=== PATIENT | male | born 1990 | race African-American/Black ===

== ENCOUNTER 2021-07-18 13:09 | Emergency (ER) | payer SELFPAY ==
[2021-07-18 13:24] VITALS: BP 135/89; PULSE 69; RESP 16; TEMP 36.1; O2SAT 100
--- NOTE | 2021-07-18 13:38 | ED.EYEPROB ---
HPI - Eye Problem General Chief complaint: Eye Problems Stated complaint: Left Eye Pain Time Seen by Provider: 07/18/21 13:38 Source: patient Mode of arrival: ambulatory Limitations: no limitations History of Present Illness HPI Narrative: Michael Forde is a 30 yo male with no PMH [facility] eye swelling and watering. His eyelids are mildly swollen, he has been around children recently but is not sure of the pneumonolysis had this eye issue. He does not wear contacts,he does not have eye pain. Vision is intact Related Data Allergies Allergy/AdvReac Type Severity Reaction Status Date / Time No Known Allergies Allergy Verified 07/18/21 13:39 Review of Systems Review of Systems: CONSTITUTIONAL: Denies fever, chills, sweats. EYES: Denies visual changes, both are redness, both have discharge. ENT: Denies rhinorrhea, congestion, sore throat, otalgia. CARDIOVASCULAR: Denies chest pain, palpitations, edema. RESPIRATORY: Denies dyspnea, wheezing, cough GASTROINTESTINAL: Denies abdominal pain, nausea, vomiting, diarrhea. GENITOURINARY: Denies dysuria, hematuria, abnormal discharge SKIN: Denies rash or itching. NEUROLOGIC: Denies numbness, or focal weakness. PSYCHIATRIC: Denies anxiety or depression. [facility] Past Medical History Medical History No acute medical problems Social History Social History (Updated 07/18/21 @ 13:41 by Kayleen Garcia CNP) Smoking status: Never smoker Alcohol intake: current Comments At time of signature, I agree with nursing past medical, surgical, social and family history. There is no relevant family history pertinent to the presenting complaint. Exam Narrative: GENERAL: This is a well-nourished, well-developed patient, in mild distress. HEAD: normocephalic, atraumatic. EYES: PERRL. Sclera reddened and watery. Vision is grossly intact. EARS: External ears normal, a. Hearing grossly intact. NOSE: External nose normal without nasal discharge, nares without redness, no rhinorrhea. THROAT: Mucous membranes moist, NECK: Neck supple, non-tender CARDIOVASCULAR: Regular rate and rhythm without murmurs, gallops, or rubs. RESPIRATORY: Clear to auscultation. Breath sounds equal bilaterally. No wheezes, rales, or rhonchi. GASTROINTESTINAL: Not done SKIN: warm, intact with no suspicious lesions or rash, good texture and turgor. NEURO: awake, alert, and oriented to person, place and time. There were no obvious focal neurologic abnormalities. Steady gait EXTREMITIES: Normal range of motion. BACK: Nontender without deformity Course Course Emergency Course: Bilateral eye injection with eyelid swelling and wateriness Started on tobramycin, good handwashing and discussed spread of eye infection Level of Care: Express Care Visit Vital Signs Vital signs: Vital Signs Temperature 96.9 F L 07/18/21 13:24 Pulse Rate 69 07/18/21 13:24 Respiratory Rate 16 07/18/21 13:24 Blood Pressure 135/89 07/18/21 13:24 Pulse Oximetry 100 07/18/21 13:24 Temperature 96.9 F L 07/18/21 13:24 Pulse Rate 69 07/18/21 13:24 Respiratory Rate 16 07/18/21 13:24 Blood Pressure 135/89 07/18/21 13:24 Pulse Oximetry 100 07/18/21 13:24 MDM - Eye Problem Differential Diagnosis Differential diagnosis: Likely corneal abrasion, conjunctivitis, subconjunctival hemorrhage, corneal ulcer and other Critical Care Time Critical Care Time Critical Care Time: No Discharge Plan Discharge Clinical Impression: Bacterial conjunctivitis Patient Disposition: Home, Self-Care Condition: Stable Instructions: Antibiotic Form, Conjunctivitis (ED) Additional Instructions: Patient is to use antibiotics by directions on the prescription Use warm washcloth to each eye 3-4 times a day do not cross contaminate between eyes do not scratch or put fingers in eyes Use sunglasses if sun is out Prescriptions: New
== END 2021-07-18 13:54 | disposition home or self-care (01) ==
PROVIDERS: Emergency Provider Nurse Practitioner
DX: H10.9 Unspecified conjunctivitis (principal)
CPT/HCPCS: 99213; G0463

== ENCOUNTER 2023-03-31 14:19 | Emergency (ER) | payer OTHER, SELFPAY ==
--- NOTE | ~2023-03-31 | XR_ITS ---
XR chest 2V DATE: 03/31/2023 15:10 INDICATION: Productive cough for one month. Nonsmoker. TECHNIQUE: 2 views COMPARISON: None FINDINGS: There is mild suprahilar infiltrate in the right consistent with mild right upper lobe infi ltrate. The lungs otherwise appear clear. Normal heart size. No hilar or mediastinal enlargement. No pleural effusion or pulmonary vascular con gestion or pneumothorax. IMPRESSION: Mild suprahilar right upper lobe pulmonary infiltrate Reviewed, dictated and finalized at location B. [employer]
[2023-03-31 14:33] VITALS: BP 132/74; PULSE 104; RESP 16; TEMP 36.8; O2SAT 99
--- NOTE | 2023-03-31 14:58 | ED.URI ---
HPI - URI/Sore Throat General Chief Complaint: Upper Respiratory Infection Stated Complaint: cough, no appetite lost weight Time Seen by Provider: 03/31/23 14:58 Source: patient Mode of arrival: ambulatory Limitations: no limitations History of Present Illness HPI Narrative: 32-year-old male presents with complaint of cough since . Reports over the past week feeling fatigued, short of breath with exertion, chest tightness when trying to take full breath. Afebrile. No history of smoking. has not been seen for his cough. Has been taking [id number] Mucinex to treat symptoms. All systems reviewed and negative except as noted above. Related Data Allergies Allergy/AdvReac Type Severity Reaction Status Date / Time No Known Allergies Allergy Verified 03/31/23 14:37 Review of Systems Review of Systems: CONSTITUTIONAL: Denies fever, chills, or sweats. EYES: Denies visual changes, redness, or discharge. ENT: Denies rhinorrhea, congestion, sore throat, or otalgia. CARDIOVASCULAR: Denies chest pain, palpitations, or edema. RESPIRATORY: Reports cough and dyspnea with exertion. GASTROINTESTINAL: Denies abdominal pain, nausea, vomiting, or diarrhea. GENITOURINARY: Denies dysuria or hematuria. SKIN: Denies rash or itching. MUSCULOSKELETAL: Denies back pain, joint pain, or myalgia. NEUROLOGIC: Denies headache, numbness, or weakness. PSYCHIATRIC: Denies anxiety or depression. All other systems reviewed are negative, except as documented in HPI. PMFSH Past Medical History Medical History No acute medical problems Social History Social History (Updated 07/18/21 @ 13:41 by Kayleen Garcia, [employer]ATOR) Smoking status: Never smoker Alcohol intake: current Comments At time of signature, agree with nursing past medical, surgical, social and family history. There is no relevant family history pertinent to the presenting complaint. Exam Narrative: GENERAL: This is a well-nourished, well-developed patient, in no apparent distress. HEAD: normocephalic, atraumatic. EYES: PERRL. Sclera clear/white. Vision is grossly intact. EARS: External ears normal, auditory canals clear and without drainage, TMs normal without perforation. Hearing grossly intact. NOSE: External nose normal with no obvious nasal discharge, nares without redness, no rhinorrhea. THROAT: Mucous membranes moist, posterior pharynx clear. NECK: Neck supple, non-tender without lymphadenopathy, masses or thyromegaly. CARDIOVASCULAR: Regular rate and rhythm without murmurs, gallops, or rubs. RESPIRATORY: rhonchi on Expiration throughout all lung reyes.Breath sounds equal bilaterally. No wheezes, rales SKIN: warm, Dry, intact with no suspicious lesions or rash, good texture and turgor. NEURO: awake, alert, and oriented to person, place and time. There were no obvious focal neurologic abnormalities. EXTREMITIES: No joint tenderness, effusion, or edema noted. Course Course Level of Care: Express Care Visit Vital Signs Vital signs: Vital Signs Temperature 36.8 C 03/31/23 14:33 Pulse Rate 104 H 03/31/23 14:33 Respiratory Rate 16 03/31/23 14:33 Blood Pressure 132/74 03/31/23 14:33 Pulse Oximetry 99 03/31/23 14:33 Oxygen Delivery Room Air 03/31/23 14:33 Temperature 36.8 C 03/31/23 14:33 Pulse Rate 104 H 03/31/23 14:33 Respiratory Rate 16 03/31/23 14:33 Blood Pressure 132/74 03/31/23 14:33 Pulse Oximetry 99 03/31/23 14:33 Oxygen Delivery Room Air 03/31/23 14:33 reviewed MDM - URI/Sore Throat MDM Narrative Medical decision making narrative: Patient is aware of diagnosis, understands and agrees to treatment plan. Anticipatory guidance given. Patient agrees to follow-up as directed and is aware of reasons to seek care at the emergency department. Portions of this record may have been created with voice recognition software discussed x-ra
== END 2023-03-31 15:31 | disposition home or self-care (01) ==
PROVIDERS: Emergency Provider Nurse Practitioner Family
DX: J18.9 Pneumonia, unspecified organism (principal); Z86.16 Personal history of COVID-19
CPT/HCPCS: 71046; 99213; G0463

== ENCOUNTER 2023-04-11 17:34 | Emergency (ER) | payer OTHER, SELFPAY ==
--- NOTE | ~2023-04-11 | XR_ITS ---
EXAMINATION: XR chest 2V Exam Date/Time: 04/11/2023 17:50 [employer] HISTORY: persistant cough non smoker Comparison: 03/31/2023. RESULT: Lines, tubes, and devices: None. Lungs and pleura: Severe diffuse ground glass opacities with some degree of apical and basilar spari ng. Cardiomediastinal silhouette: Stable. Other: No acute osseous or upper abdominal finding. IMPRESSION: Diffuse groundglass opacities may represent moderate pulmonary edema versus pneumonia. Reviewed, dictated and finalized at location [facility] IMPRESSION: Diffuse groundglass opacities may represent moderate pulmonary edema versus pne umonia.
[2023-04-11 17:43] VITALS: BP 147/81; PULSE 136; RESP 18; TEMP 38.3; O2SAT 98
--- NOTE | 2023-04-11 17:45 | ED.GENADULT ---
HPI - General Adult General Chief complaint: Upper Respiratory Infection Stated complaint: cough following last visit Time Seen by Provider: 04/11/23 17:47 Source: patient, RN notes reviewed and old records reviewed Mode of arrival: ambulatory Limitations: no limitations History of Present Illness HPI narrative: 32-year-old male presents to the [facility] with cough. Patient presents with fever, tachycardia. Patient denies any chest pain. Reports mildly short of breath. Patient also concerned that he has lost 40 lb since . Was seen on 31 March, diagnosed with pneumonia which prescribed antibiotics, inhaler, prednisone. Patient states that he did feel better, started feeling worse again 4 days ago. Works in a nursing home. Onset (ago): month(s) (1) Treatments prior to arrival: other (Prednisone, albuterol, antibiotics) Related Data Home Medications Medication Instructions Recorded Confirmed No Home Medications 04/11/23 04/11/23 Allergies Allergy/AdvReac Type Severity Reaction Status Date / Time No Known Allergies Allergy Verified 04/11/23 17:45 Review of Systems Review of Systems: All systems reviewed & are unremarkable except as noted in HPI and below Constitutional: Constitutional: Reports as per HPI, Reports fatigue and Reports weight loss (40 lb in a month) Eyes: Eyes: Reports no additional eye complaints ENT: Reports system reviewed and no additional complaints, except as documented Cardiovascular: Cardiovascular: Reports no additional cardiovascular complaints, Denies chest pain and Denies dyspnea Respiratory: Respiratory: Reports as per HPI, Reports chest congestion, Reports cough and Reports dyspnea Gastrointestinal: Gastrointestinal: Reports no additional gastrointestinal complaints, Denies abdominal pain, Denies nausea and Denies vomiting Musculoskeletal: Musculoskeletal: Reports no additional musculoskeletal complaints Integumentary/Breasts: Skin/Breast: Reports system reviewed and no additional complaints, except as docu Neurologic: Reports system reviewed and no additional complaints, except as documented Psychiatric: Psychiatric: Reports no additional psychiatric complaints Allergic/Immunologic: Allergic/Immunologic: Reports no additional allergic/immunologic complaints PMF Past Medical History Medical History No acute medical problems Social History Social History Smoking status: Never smoker Alcohol intake: current Comments At the time of my signature, I reviewed and agree with the nursing past medical, surgical, social, and family history. There is no relevant family history pertinent to the patient complaint. Exam Const: General: cooperative, no acute distress, well developed, alert, ill appearing acutely (Mild), uncomfortable and well nourished Nutritional Appearance: well nourished Orientation/consciousness: patient oriented x3 Limitations: no limitations HENMT: Head: normal to inspection Ears: hearing grossly normal bilaterally, external ears normal, TM's normal bilaterally, EAC's normal, mastoids normal and no periauricular adenopathy Face/Nose/Sinus: Normal external nose present, Normal nares present, Normal nasal mucous membranes and turbinates present, normal facial exam and face symmetric Face and sinus: normal facial exam and face symmetric Mouth: Yes Normal oral and palatal mucosa present, Yes lip normal and Yes moist mucous membranes Throat: posterior oropharynx normal and uvula midline Eyes: General: appearance normal, both eyes and all related structures Alignment and Position: alignment normal Periorbital: periorbital findings normal Pupils: Equal, round and reactive pupils present EOM: EOMs intact bilaterally Neck: Neck: normal visual inspection, full ROM, no lymphadenopathy and no meningeal signs Chest: Chest palpation & inspection: normal
[2023-04-11 17:56] VITALS: TEMP 38.3
[2023-04-11] MEDS: ACETAMINOPHEN 500 MG TABLET 1000 MG PO (17:56)
[2023-04-11 18:29] VITALS: TEMP 38.2
[2023-04-11 18:30] VITALS: PULSE 119; RESP 20; O2SAT 96
--- NOTE | 2023-04-11 18:31 | ECG_ITS ---
Measurements Intervals [place] Rate: 119 P: 66 WI: 139 QRS: 47 QRSD: 114 T: 58 QT: 331 QTc: 467 Interpretive Statements SINUS TACHYCARDIA POSSIBLE LEFT ATRIAL ENLARGEMENT INCOMPLETE RIGHT BUNDLE BRANCH BLOCK BASELINE ARTIFACT- I, II, AVR, AVL, V1-V2, V4-V6 ABNORMAL ECG NO PREVIOUS ECG AVAILABLE FOR COMPARISON Electronically Signed On 04-12-2023 8:47:13 MEDICAL REVIEW SPECIALIST by Jamey Gordillo D.O.
== END 2023-04-11 18:57 | disposition short-term general hospital (02) ==
PROVIDERS: Emergency Provider Nurse Practitioner
DX: R05.1 Acute cough (principal); J81.0 Acute pulmonary edema; I45.10 Unspecified right bundle-branch block; Z20.822 Contact with and (suspected) exposure to COVID-19
CPT/HCPCS: 71046; 87426; 87804; 93005; 99215; A9270; G0463

== ENCOUNTER 2023-04-11 19:12 | Emergency (ER) | payer OTHER, SELFPAY ==
--- NOTE | ~2023-04-11 | XR_ITS ---
Portable chest x-ray Comparison: 04/11/2023 Clinical History: Cough Findings: Questionable minimal groundglass opacity at the lung bases and left perihilar region. Car diomediastinal silhouette is stable. Bones and soft tissues are unremarkable. Impression: Questionable minimal ground glass opacity lung bases and left perihilar region. Correlate for atypica l infection or minimal pulmonary edema. Reviewed, dictated and finalized at location . UCTION GENERALIST Impression: Questionable minimal ground glass opacity lung bases and left perihilar region. Correlate for atypical infection or minimal pulmonary edema.
[2023-04-11 19:27] VITALS: BP 125/79; PULSE 124; RESP 20; TEMP 36.4; O2SAT 98
--- NOTE | 2023-04-12 00:12 | ECG_ITS ---
Measurements Intervals [place] Rate: 111 P: 60 OR: 132 QRS: 57 QRSD: 118 T: 59 QT: 346 QTc: 472 Interpretive Statements SINUS TACHYCARDIA INCOMPLETE RIGHT BUNDLE BRANCH BLOCK BORDERLINE T WAVE ABNORMALITY- ANT/INF LEADS ABNORMAL ECG NO PREVIOUS ECG AVAILABLE FOR COMPARISON Electronically Signed On 04-12-2023 6:07:01 STUDENT LIAISON OFFICER by Jamey Gordillo D.O.
[2023-04-12 00:24] VITALS: O2SAT 100
[2023-04-12 00:40] LABS: Basophils Absolute Auto 0.1 K/mm3 (0.0-0.1); Basophils Percent Auto 0.8 % (0.2-1.2); Eosinophils Absolute Auto 0.2 K/mm3 (0-0.3); Eosinophils Percent Auto 1.9 % (0-4.4); Hematocrit 43.2 % (42.0-52.0); Hemoglobin 14.1 g/dL (14.0-18.0); Immature Granulocyte Absolute 0.04 K/mm3 (0.00-0.031); Immature Granulocyte Percent A 0.5 % (0-0.5); Mean Corpuscular HGB Conc 32.6 g/dl (32-36); Mean Corpuscular Hemoglobin 27.4 pg (26-34); Mean Corpuscular Volume 83.9 fl (80-100); Mean Platelet Volume 9.3 fl (7.4-10.4); Monocytes Absolute Auto 0.3 K/mm3 (0.1-0.6); Monocytes Percent Auto 3.3 % (2.6-8.5); Neutrophils Absolute Auto 6.7 K/mm3 (1.3-6.7); Neutrophils Percent Auto 75.5 % (45.5-73.1); Platelet Count Result 283 k/mm3 (150-375); Red Blood Count 5.15 M/mm3 (4.6-6.20); Red Cell Distribution Width 14.6 % (11.5-14.5); White Blood Count 8.9 K/mm3 (4.5-10.0)
[2023-04-12] MEDS: SODIUM CHLORIDE 0.9% IV 2,000 ML 999 ML IV CONT (01:01)
[2023-04-12] MEDS: guaiFENesin/DEXTROMETHORPHAN 10 ML UDC PO (01:02)
[2023-04-12] MEDS: ACETAMINOPHEN 500 MG TABLET 1000 MG PO (01:02)
[2023-04-12] MEDS: ONDANSETRON INJ 4 MG/2 ML VIAL IV PUSH (01:03)
[2023-04-12] MEDS: KETOROLAC 15 MG/ML VIAL (*BKC) IV PUSH (01:03)
[2023-04-12 01:15] VITALS: BP 138/74; PULSE 92; RESP 19; O2SAT 100
[2023-04-12 01:16] LABS: Influenza A QL RT-PCR Negative (Negative); Influenza B QL RT-PCR Negative (Negative); RSV RNA, RT-PCR Negative (Negative); SARS-CoV-2 RNA PCR Negative (Negative)
[2023-04-12 01:20] LABS: Anion Gap 6 mmol/L (8-16); Blood Urea Nitrogen 16 mg/dL (9-20); Calcium 8.4 mg/dL (8.4-10.2); Carbon Dioxide 28 mmol/L (22-30); Chloride 99 mmol/L (98-107); Estimated CRCL calculation 97 ml/min; Estimated Glomerular Filt Rate > 60; Glucose 112 mg/dL (65-110); Potassium 3.3 mmol/L (3.4-5.0); Sodium 133 mmol/L (137-145)
[2023-04-12 01:30] VITALS: BP 125/74
--- NOTE | 2023-04-12 01:39 | ED.GENADULT ---
HPI - General Adult General Chief complaint: Upper Respiratory Infection Stated complaint: Cough for 1month, fever Time Seen by Provider: 04/12/23 00:08 History of Present Illness HPI narrative: This is a 32-year-old male sent from urgent care for concerns with for pneumonia. Patient was initially seen on March 31 when he had a productive cough for 1 month. That time he was treated with a course of doxycycline. Symptoms initially improved but then they got worse. Symptoms currently include shortness of breath productive cough fatigue fevers chills nausea vomiting. Patient works as a correctional guard. Related Data Allergies Allergy/AdvReac Type Severity Reaction Status Date / Time No Known Allergies Allergy Verified 04/11/23 19:30 [facility] Past Medical History Medical History No acute medical problems Social History Social History Smoking status: Never smoker Alcohol intake: current Exam Narrative: APPEARANCE: Appears uncomfortable Head: atraumatic. EYES: EOMI, NOSE: Atraumatic NECK: Trachea midline RESPIRATORY: Coarse lung sounds, productive cough CARDIOVASCULAR: RRR, ABDOMINAL: Non-distended MUSCULOSKELETAl: No obvious deformities NEURO: Alert. Moving 4/4 extremities SKIN:: Warm, dry. Normal color PSYCHIATRIC: Normal affect Course Vital Signs Vital signs: Vital Signs Temperature 97.6 F 04/11/23 19:27 Pulse Rate 124 H 04/11/23 19:27 Respiratory Rate 20 04/11/23 19:27 Blood Pressure 125/79 04/11/23 19:27 Pulse Oximetry 98 04/11/23 19:27 Oxygen Delivery Room Air 04/11/23 19:27 Temperature 97.6 F 04/11/23 19:27 Pulse Rate 124 H 04/11/23 19:27 Respiratory Rate 20 04/11/23 19:27 Blood Pressure 125/79 04/11/23 19:27 Pulse Oximetry 100 04/12/23 00:24 Oxygen Delivery Room Air 04/12/23 00:24 Medical Decision Making [facility] Narrative Medical decision making narrative: -Course: 32-year-old male presenting with URI symptoms. X-ray consistent with pneumonia. Initially tachycardic but improved with fluid rehydration and antipyretics. Patient's last antibiotic regimen was doxycycline. Patient will be placed on Augmentin and azithromycin to cover for CAP. On re-evaluation patient was still slightly tachycardic but well-appearing. We discussed admission versus a trial of outpatient therapy the patient is comfortable going home with the new set of antibiotics. He was given his 1st dose here in the emergency department. Patient will be discharged with primary care follow-up. -DDX includes but is not limited to: Pneumonia, tuberculosis, heart failure, myocarditis, viral syndrome -Social determinants of health: Works in intermediate -External Chart Review: Review urgent care note -Independent interpretation of studies: White count 8.9. Metabolic panel within acceptable limits. Viral swabs negative Troponin and BNP normal Independent EKG interpretation: Rhythm [sinus], Rate [111], Amber -[normal], ME -[normal], QRS [narrow], QTC [normal], T waves -[negative for concerning inversions], ST Segments - [Negative for concerning elevations] Final interpretations: sinus tachycardia -Interventions: 2 L normal saline, Toradol, Tylenol, Robitussin, Zofran -Shared decision making / Disposition:discharged. -RX Augmentin, azithromycin, Motrin, Tylenol, Zofran Vital Signs Vital Signs: Vital Signs Temperature 97.6 F 04/11/23 19:27 Pulse Rate 124 H 04/11/23 19:27 Respiratory Rate 20 04/11/23 19:27 Blood Pressure 125/79 04/11/23 19:27 Pulse Oximetry 98 04/11/23 19:27 Oxygen Delivery Room Air 04/11/23 19:27 Temperature 97.6 F 04/11/23 19:27 Pulse Rate 124 H 04/11/23 19:27 Respiratory Rate 20 04/11/23 19:27 Blood Pressure 125/79 04/11/23 19:27 Pulse Oximetry 100 04/12/23 00:24 Oxygen Delivery Room Air 04/12/23 00:24 Lab Da
[2023-04-12 01:45] VITALS: BP 121/75; PULSE 91; RESP 17; O2SAT 100
[2023-04-12 02:03] LABS: NT Pro B Type Natriuretic Pept < 20 pg/mL (19.9-100); Troponin I < 0.012 ng/mL (0.000-0.034)
[2023-04-12 02:15] VITALS: BP 124/67; O2SAT 100
[2023-04-12] MEDS: AMOXICILLIN/CLAVULANATE K 875-125 MG TAB 1 TABLET PO (02:22)
[2023-04-12] MEDS: AZITHROMYCIN 250 MG TABLET 500 MG PO (02:22)
[2023-04-12 02:33] VITALS: BP 103/67; PULSE 98; RESP 18; O2SAT 100
== END 2023-04-12 02:58 | disposition home or self-care (01) ==
PROVIDERS: Emergency Provider Emergency Medicine
DX: J18.9 Pneumonia, unspecified organism (principal); Z20.822 Contact with and (suspected) exposure to COVID-19
CPT/HCPCS: 36415; 71045; 71046; 80048; 83880; 84484; 85025; 87426; 87637; 87804; 93005; 96361; 96374; 96375; 99215; 99284; A9270; G0463; J1885; J2405; J7030

== ENCOUNTER 2024-03-27 17:18 | Emergency (ER) | payer OTHER, SELFPAY ==
--- NOTE | ~2024-03-27 | XR_ITS ---
CHEST RADIOGRAPH, PA AND LATERAL CLINICAL HISTORY: cough for 3 months . COMPARISON: 04/12/2023 and dating back to 03/31/2023 TECHNIQUE: PA and lateral views of the chest. FINDINGS The cardiomediastinal silhouette is unremarkable. Significant peribronchial thickening is redemonstrated, suggesting inflammatory airway disease. The remainder of the lungs are otherwise clear. IMPRESSION: Findings suggesting inflammatory airway disease, without focal infiltrate or effusion. Reviewed, dictated and finalized at location A. [employer] IMPRESSION: Findings suggesting inflammatory airway disease, without focal infiltrate or ef fusion.
--- NOTE | 2024-03-27 17:19 | ED_ITS ---
HPI - URI/Sore Throat General Chief Complaint: Upper Respiratory Infection Stated Complaint: Cough Time Seen by Provider: 03/27/24 17:18 Source: patient Mode of arrival: ambulatory Limitations: no limitations History of Present Illness HPI Narrative: Patient is a 33-year-old male who presents with 3 months of cough. Patient states he was seen at [facility] in given antibiotic. Patient states he had less than a week of relief of symptoms before they returned. Patient reports cough is worse at night and he is having night sweats. Patient also reports he has lost significant amount of weight due to lack of appetite and vomiting with coughing fits. Denies any congestion, sore throat, ear pain. Related Data Allergies Allergy/AdvReac Type Severity Reaction Status Date / Time No Known Allergies Allergy Verified 03/27/24 17:20 Review of Systems Review of Systems: All systems reviewed & are unremarkable except as noted in HPI and below Constitutional: Constitutional: Denies body ache(s), Denies chills, Denies fatigue, Denies fever(s), Denies headache(s), Denies malaise and Denies weakness Eyes: Eyes: Denies blurry vision, Denies itchy eyes and Denies loss of vision ENT: Denies otalgia, Denies headache(s), Denies nasal congestion, Denies sinus pain and Denies sore throat Cardiovascular: Cardiovascular: Denies chest pain, Denies irregular heart rhythm and Denies dyspnea Respiratory: Respiratory: Reports cough and Denies dyspnea Gastrointestinal: Gastrointestinal: Denies abdominal pain, Denies diarrhea, Denies nausea and Reports vomiting Musculoskeletal: Musculoskeletal: Denies back pain, Denies myalgias and Denies arthralgias Integumentary/Breasts: Skin/Breast: Denies pruritus and Denies rash Neurologic: Denies headache(s), Denies loss of vision and Denies weakness Psychiatric: Psychiatric: Reports no additional psychiatric complaints Endocrine: Endocrine: Denies fatigue Allergic/Immunologic: Allergic/Immunologic: Denies itchy eyes PMFSH Past Medical History Medical History No acute medical problems Social History Social History Smoking status: Never smoker Alcohol intake: current Comments At time of signature, agree with nursing past medical, surgical, social and family history. There is no relevant family history pertinent to the presenting complaint. Exam Const: General: cooperative, healthy appearing, comfortable, no acute distress and well nourished Nutritional Appearance: well nourished Orientation/consciousness: patient oriented x3 Limitations: no limitations HENMT: Head: normal to inspection, normocephalic and atraumatic Ears: hearing grossly normal bilaterally, external ears normal, TM's normal bilaterally, EAC's normal and no periauricular adenopathy Face/Nose/Sinus: Normal external nose present, Abnormal mucous membranes and turbinates present erythematous bilateral and diffuse, normal facial exam, sinuses nontender and face symmetric Face and sinus: normal facial exam, sinuses nontender and face symmetric Mouth: Yes Normal oral and palatal mucosa present, Yes lip normal, Yes tongue normal, Yes Normal salivary glands and ducts present, Yes oropharynx normal and Yes moist mucous membranes Teeth and gingiva: dentition normal Throat: posterior oropharynx normal, tonsils normal and uvula midline Eyes: General: appearance normal, both eyes and all related structures Alignment and Position: alignment normal and position normal Periorbital: periorbital findings normal Eyelids: eyelids normal Pupils: Equal, round and reactive pupils present Neck: Neck: normal visual inspection, full ROM, no lymphadenopathy and supple Chest: Chest palpation & inspection: normal inspection of the chest and normal palpation of entire chest wall Resp: Effort & Inspection: normal respiratory effort and able to speak in complete sentences Auscultation: no crackles, no rales, no rhonchi, no wheezes and diminished lung sounds diffuse Cardio: Rate: regular rate Rhythm: regular rhythm Heart sounds: S1 normal heart sound present and S2 normal heart sound present GI: Inspection: normal to inspection Skin: General skin exam: normal color and no rashes or lesions noted Neuro: General: patient oriented x3 and moves all extremities Cranial nerves: Yes Equal, round and reactive pupils present Speech: normal speech Gait exam (Neuro): Normal gait present Extrem: General: normal to inspection, full ROM and no edema Psych: Appearance: grossly normal and well kempt Mental Status: mental status grossly normal Speech and movement: Normal speech and movement present Affect: normal affect Attitude: cooperative Thought process: Normal thought process present Course Course Emergency Course: Discharge instructions reviewed with patient, as well as provided in writing per nursing staff. The instructions also include specific and strict return/GO TO THE ER as well as f/u information. All questions have been answered, and the patient deny any further questions with discharge and discharge plan. Portions of this record may have been created with voice recognition software Level of Care: Express Care Visit Vital Signs Vital signs: Vital Signs Temperature 36.7 C 03/27/24 17:25 Pulse Rate 102 H 03/27/24 17:25 Respiratory Rate 20 03/27/24 17:25 Blood Pressure 124/81 03/27/24 17:25 Pulse Oximetry 99 03/27/24 17:25 Oxygen Delivery Room Air 03/27/24 17:25 Temperature 36.7 C 03/27/24 17:25 Pulse Rate 102 H 03/27/24 17:52 Respiratory Rate 20 03/27/24 17:52 Blood Pressure 124/81 03/27/24 17:25 Pulse Oximetry 99 03/27/24 17:25 Oxygen Delivery Room Air 03/27/24 17:25 Reviewed MDM - URI/Sore Throat MDM Narrative Medical decision making narrative: Discussed the importance of following up with PCP and getting a referral to pulmonology. Patient had x-ray compared to last year and was unchanged Pt well hydrated appearing, in no respiratory distress, hemodynamically stable. Recommend supportive care. The patient is stable at time of discharge the clinical impression was discussed and the patient was given the opportunity to ask questions, which were addressed as completely as possible given the information available at present. Anticipatory guidance and return to care precautions were discussed and the importance of primary care follow-up was stressed and encouraged. The patient voiced understanding of the plan, indications to return, and the need for follow-up. Differential diagnosis considered: Morrissey virus, strep pharyngitis, allergic rhinitis, upper respiratory tract infection, sinusitis, rhinosinusitis, nasopharyngitis. viral pharyngitis, otitis media, otitis externa, otitis effusion, foreign body, cerumen impaction, viral syndrome, and influenza.? Exam findings show no acute concerns or changes; patient is non-toxic appearing and is in no distress.? Patient is appropriate for outpatient treatment and follow- up.? Medical Records Attestation: I reviewed the patient's medical records. Imaging Data Radiologist's impression: CHEST RADIOGRAPH, PA AND LATERAL CLINICAL HISTORY: cough for 3 months . COMPARISON: 04/12/2023 and dating back to 03/31/2023 TECHNIQUE: PA and lateral views of the chest. FINDINGS The cardiomediastinal silhouette is unremarkable. Significant peribronchial thickening is redemonstrated, suggesting inflammatory airway disease. The remainder of the lungs are otherwise clear. IMPRESSION: Findings suggesting inflammatory airway disease, without focal infiltrate or effusion. Discharge Plan Discharge Clinical Impression: Inflammation of lung Cough Qualifiers: Cough type: chronic Qualified Code(s): R05.3 - Chronic cough Patient Disposition: Home, Self-Care Condition: Stable Instructions: Antibiotic Form Additional Instructions: You have chronic inflammatory lung disease that can cause a fever, cough, and trouble breathing. Please continue all antibiotics as directed until complete. Take steroids in the morning with food. Use inhaler daily. Use Tessalon Perles for cough. Nutrition is important - eat small frequent meals. Get lots of rest and drink fluids. Alternate Tylenol and ibuprofen for fever. Tylenol 650-1000mg by mouth every 4-6 hours. Do not exceed 4000mg in 24 hours. Advil (Ibuprofen) 600 mg by mouth every 6 hours. Do not exceed 2400mg in 24 hours. Call your Primary Care Doctor and make a follow-up appointment in 3 days. If your cough worsens, you develop a fever greater than 103, you develop shaking chills, a fast heartbeat, trouble breathing and/or feel you are are breathing much faster than usual, call your Primary Care Doctor or go to the ER. Make sure you wash your hands frequently. If you are having a hard time finding a physician please call our [facility] group liaison at [phone]. Patient Language: Albanian Prescriptions: New azithromycin 250 mg tablet See Rx Instructions .ROUTE .COMPLEX Qty: 6 0RF Rx Instructions: For 250 mg dose pack: take 500 mg today (day 1), then 250 mg for 4 days (days 2-5) prednisone 20 mg tablet 40 mg PO DAILY 5 Days Qty: 10 0RF amoxicillin 875 mg tablet 875 mg PO Q12H 7 Days Qty: 14 0RF benzonatate 100 mg capsule 100 mg PO BID PRN (Reason: cough) Qty: 14 0RF albuterol sulfate 90 mcg/actuation HFA aerosol inhaler 2 puff inhalation QID PRN (Reason: shortness of breath or wheezing) Qty: 6.7 0RF (DME) Aerochamber MV Spacer See Rx Instructions .Route Qty: 1 0RF Rx Instructions: As directed Follow-up/Referrals: Sameer Leach MD [Physician] - 3 Days (Establish care) UNKNOWN,DOCTOR [Non-Staff] - Stand Alone Forms: Work/School Release IP Time of Disposition: 18:47
[2024-03-27 17:25] VITALS: BP 124/81; PULSE 102; RESP 20; TEMP 36.7; O2SAT 99
[2024-03-27 17:52] VITALS: PULSE 102; RESP 20
== END 2024-03-27 18:55 | disposition home or self-care (01) ==
PROVIDERS: Emergency Provider Nurse Practitioner Family
DX: J98.4 Other disorders of lung (principal); R05.3 Chronic cough
CPT/HCPCS: 71046; 99213; G0463